=== PATIENT | male | born 1965 | race Caucasian/White ===

== ENCOUNTER 2017-03-27 13:05 | Emergency (ER) | payer MEDICAID ==
[~2017-03-27] VITALS: Ht 182.9 cm; Wt 107.5 kg
[~2017-03-27 13:05] MED LIST: AMIT25TA PO; BACL-19 PO; DISU250T15 PO; FOLI-17 PO; GABA300C10 PO; IBUP800T PO; LITH300T3 PO; LORA-446 PO; MELO-184 PO; MULT-750 PO; PROP20TA PO; QUET200T PO; THIA100T6 PO
[2017-03-27] MEDS ORDERED: KETOROLAC 30 MG/1 ML IVPush ONE (14:00)
[2017-03-27] MEDS ORDERED: SODIUM CHLORIDE FLUSH 10ML SYR IVF ONE (14:00)
[2017-03-27] MEDS ORDERED: ASPIRIN 81 MG TABLET CHEW PO ONE (14:00)
[2017-03-27 14:32] LABS: BLOOD UREA NITROGEN 10 mg/dL (7-18)
[2017-03-27 14:38] LABS: IS PT STATUS REG ER OR PRE ER? YES
[2017-03-27 16:32] VITALS: BP 149/90
[2017-03-27] MEDS ORDERED: KETOROLAC 30 MG/1 ML ONE (16:44)
[2017-03-27] MEDS ORDERED: KETOROLAC 30 MG/1 ML IM ONE (17:00)
== END 2017-03-27 17:32 | disposition home or self-care (01) ==
LOC: ED 17:05
DX: M25.511 Pain in right shoulder (principal); M79.621 Pain in right upper arm; M54.9 Dorsalgia, unspecified; G89.29 Other chronic pain; I10 Essential (primary) hypertension
CPT/HCPCS: 36415; 71010; 73030; 80048; 82040; 83880; 84484; 85025; 93005; 96372; 99285; J1885

== ENCOUNTER 2017-03-31 07:22 | Emergency (ER) | payer MEDICAID ==
[~2017-03-31] VITALS: Ht 182.9 cm; Wt 106.2 kg
[2017-03-31] MEDS ORDERED: HYDROcodone/APAP 5/325 TABLET PO ONE (08:30)
[2017-03-31] MEDS ORDERED: HYDROcodone/APAP 5/325 TABLET ONE (08:37)
[2017-03-31 08:52] VITALS: BP 131/79
== END 2017-03-31 08:58 | disposition home or self-care (01) ==
LOC: ED 08:22
DX: M79.622 Pain in left upper arm (principal); M54.9 Dorsalgia, unspecified; G89.29 Other chronic pain; I10 Essential (primary) hypertension
CPT/HCPCS: 99282

== ENCOUNTER 2017-04-17 19:48 | Emergency (ER) | payer MEDICAID ==
[~2017-04-17] VITALS: Ht 177.8 cm; Wt 97.0 kg
[2017-04-17 19:57] VITALS: BP 165/97
== END 2017-04-17 23:05 | disposition home or self-care (01) ==
LOC: ED 20:48
DX: F31.9 Bipolar disorder, unspecified (principal); F10.229 Alcohol dependence with intoxication, unspecified; I10 Essential (primary) hypertension
CPT/HCPCS: 99283

== ENCOUNTER 2017-05-19 09:04 | Emergency (ER) | payer MEDICAID ==
[~2017-05-19] VITALS: Ht 182.9 cm; Wt 98.0 kg
[2017-05-19] MEDS ORDERED: HYDROcodone/APAP 5/325 TABLET ONE (09:54)
[2017-05-19] MEDS ORDERED: HYDROcodone/APAP 5/325 TABLET PO PRN (10:00)
[2017-05-19 10:29] LABS: ASPARTATE AMINO TRANSFERASE 29 U/L (15-37); BLOOD UREA NITROGEN 11 mg/dL (7-18)
[2017-05-19 12:36] VITALS: BP 113/65
== END 2017-05-19 12:47 | disposition home or self-care (01) ==
LOC: ED 10:03
DX: R42 Dizziness and giddiness (principal); I10 Essential (primary) hypertension
CPT/HCPCS: 29515; 36415; 80053; 85025; 93005

== ENCOUNTER 2018-03-27 09:07 | Inpatient (IN) | payer MEDICAID ==
[~2018-03-27] VITALS: Ht 182.9 cm; Wt 105.8 kg
[~2018-03-27 09:07] MED LIST changes: +IBUP-1223 PO; -IBUP800T PO; -MELO-184 PO; +MELO15TA24 PO
[2018-03-27] MEDS ORDERED: GABA100C PO (09:21)
[2018-03-27] MEDS ORDERED: SODIUM CHLORIDE 0.9% 1,000 ML IV ONE (09:26)
[2018-03-27] MEDS ORDERED: SODIUM CHLORIDE 0.9% 1,000ML IVBOLUS ONE (09:30)
[2018-03-27 10:14] LABS: BASOPHILS % (AUTO) 0 % (0-1); EOSINOPHILS # (AUTO) 0.08 x10^3/uL (0-0.4); EOSINOPHILS % (AUTO) 1 % (1-7); LYMPHOCYTES # (AUTO) 0.52 x10^3/uL (1-3.4); LYMPHOCYTES % (AUTO) 9 % (22-44); MD NO; MEAN CORPUSCULAR HEMOGLOBIN 31.2 pg (27.5-34.5); MEAN CORPUSCULAR VOLUME 91.6 fL (81-97); MEAN PLATELET VOLUME 8.1 fL (7.4-10.4); MONOCYTES # (AUTO) 0.27 x10^3/uL (0.2-0.8); MONOCYTES % (AUTO) 5 % (2-9); NEUTROPHILS # (AUTO) 5.02 x10^3/uL (1.8-6.8); NEUTROPHILS % (AUTO) 85 % (42-75); PLATELET COUNT 168 x10^3/uL (130-400); RED BLOOD COUNT 4.23 x10^6/uL (4.38-5.82); RED CELL DISTRIBUTION WIDTH 13.2 % (9.4-14.8)
[2018-03-27 10:26] LABS: ALANINE AMINOTRANSFERASE 282 U/L (12-78); ALBUMIN 3.2 g/dL (3.4-5.0); ANION GAP 12 mmol/L (5-15); CALCIUM 7.9 mg/dL (8.5-10.1); CHLORIDE 98 mmol/L (98-107); CREATININE 0.84 mg/dL (0.7-1.3)
[2018-03-27 10:31] LABS: SALICYLATE LEVEL < 1.7 mg/dL (2.8-20.0)
[2018-03-27 10:37] LABS: ALKALINE PHOSPHATASE 112 U/L (45-117); THYROID STIMULATING HORMONE 0.523 mIU/L (0.358-3.740); TOTAL PROTEIN 6.7 g/dL (6.4-8.2)
[2018-03-27 10:39] LABS: ACETAMINOPHEN < 2 mcg/mL (10-30)
[2018-03-27] MEDS ORDERED: POTASSIUM CHLORIDE 20 MEQ, MVI ADULT 10 ML, FOLIC ACID 1 MG, MAGNESIUM SULFATE 2 GM in ... IV SCH (12:50)
[2018-03-27] MEDS ORDERED: LORazepam 1MG TABLET PO PRN ×4 (13:00)
[2018-03-27] MEDS ORDERED: PROMETHAZINE 25MG TABLET PO PRN (13:00)
[2018-03-27] MEDS ORDERED: DOCUSATE 100 MG CAPSULE PO PRN (13:00)
[2018-03-27] MEDS ORDERED: LORazepam 0.5MG TABLET PO PRN (13:00)
[2018-03-27] MEDS ORDERED: BISACODYL 10 MG SUPP PR PRN (13:00)
[2018-03-27] MEDS ORDERED: LORazepam 2 MG/ML, 1ML IV PRN ×2 (13:00)
[2018-03-27] MEDS ORDERED: LABETALOL 5MG/ML, 20ML IV PRN (13:00)
[2018-03-27] MEDS ORDERED: ONDANSETRON 2MG/ML, 2ML IV PRN (13:00)
[2018-03-27 13:24] LABS: BILIRUBIN, DIRECT 0.3 mg/dL (0.1-0.2)
[2018-03-27] MEDS ORDERED: LORazepam 2 MG/ML, 1ML ONE (13:58)
[2018-03-27] MEDS: LORazepam 2 MG/ML, 1ML IV PRN ×4 (14:03→22:44)
[2018-03-27 14:58] VITALS: BP 128/83
[2018-03-27] MEDS: GABAPENTIN 100 MG CAPSULE PO SCH ×2 (15:46→21:10)
[2018-03-27] MEDS: HEPARIN 5,000 UNITS/ML, 1ML SQ SCH ×2 (15:46→21:00)
[2018-03-27 17:40] VITALS: BP 118/75
[2018-03-27 19:25] LABS: MICROSCOPIC NOT IND
[2018-03-27 19:28] LABS: CULTURE INDICATED? NO
[2018-03-27 20:14] VITALS: BP_SYST 112; BP_SYST 127; BP_DIAS 64; BP_DIAS 80
[2018-03-27] MEDS: PROPRANOLOL 20 MG TABLET PO SCH (21:10)
[2018-03-27 21:34] LABS: AMPHETAMINE SCREEN, URINE Negative (Negative); BARBITURATE SCREEN, URINE Negative (Negative); BENZODIAZEPINE SCREEN, URINE Negative (Negative); CANNABINOID SCREEN, URINE Negative (Negative); COCAINE SCREEN, URINE Negative (Negative); METHADONE SCREEN, URINE Negative (Negative); OPIATE SCREEN, URINE Negative (Negative)
[2018-03-28] MEDS: LORazepam 2 MG/ML, 1ML IV PRN ×7 (00:05→23:45)
[2018-03-28 02:07] VITALS: BP 122/81
[2018-03-28] MEDS: HEPARIN 5,000 UNITS/ML, 1ML SQ SCH ×3 (05:00→20:13)
[2018-03-28 05:28] LABS: BASOPHILS % (AUTO) 0 % (0-1); MD NO; MEAN CORPUSCULAR HEMOGLOBIN 31.7 pg (27.5-34.5); MEAN CORPUSCULAR HGB CONC 34.3 g/dL (33.2-36.2); MEAN PLATELET VOLUME 8.5 fL (7.4-10.4)
[2018-03-28 05:30] LABS: INTERNATIONAL NORMALIZED RATIO 0.96 (0.93-1.1)
[2018-03-28 05:36] LABS: BASOPHILS # (AUTO) 0.01 x10^3/uL (0-0.1); EOSINOPHILS # (AUTO) 0.45 x10^3/uL (0-0.4); EOSINOPHILS % (AUTO) 9 % (1-7); LYMPHOCYTES # (AUTO) 0.96 x10^3/uL (1-3.4); LYMPHOCYTES % (AUTO) 20 % (22-44); MEAN CORPUSCULAR VOLUME 92.4 fL (81-97); MONOCYTES # (AUTO) 0.29 x10^3/uL (0.2-0.8); MONOCYTES % (AUTO) 6 % (2-9); NEUTROPHILS # (AUTO) 3.18 x10^3/uL (1.8-6.8); NEUTROPHILS % (AUTO) 65 % (42-75); PLATELET COUNT 127 x10^3/uL (130-400); RED BLOOD COUNT 4.34 x10^6/uL (4.38-5.82); RED CELL DISTRIBUTION WIDTH 13.1 % (9.4-14.8)
[2018-03-28 05:45] LABS: CHLORIDE 107 mmol/L (98-107)
[2018-03-28 06:09] LABS: ALANINE AMINOTRANSFERASE 209 U/L (12-78); ALKALINE PHOSPHATASE 97 U/L (45-117); ANION GAP 8 mmol/L (5-15); BILIRUBIN,TOTAL 0.9 mg/dL (0.2-1.0); CALCIUM 8.2 mg/dL (8.5-10.1); CREATININE 0.73 mg/dL (0.7-1.3); TOTAL PROTEIN 6.5 g/dL (6.4-8.2)
[2018-03-28 08:37] VITALS: BP 120/82
[2018-03-28] MEDS: PROPRANOLOL 20 MG TABLET PO SCH ×2 (09:32→20:13)
[2018-03-28] MEDS: MULTIVITAMINS/MINERALS TABLET PO SCH (09:33)
[2018-03-28] MEDS: GABAPENTIN 100 MG CAPSULE PO SCH ×3 (09:33→20:13)
[2018-03-28 12:29] LABS: % IRON SATURATION 16 % (20-55); IRON LEVEL 39 mcg/dL (65-175); TOTAL IRON BINDING CAPACITY 239 mcg/dL (250-450)
[2018-03-28] MEDS ORDERED: GADOBUTROL 10 MMOL/10 ML PFS ONE (13:15)
[2018-03-28 13:50] VITALS: BP 110/77
[2018-03-28] MEDS: POTASSIUM CHLORIDE 20 MEQ TAB.ER.PRT PO SCH (15:44)
[2018-03-28] MEDS ORDERED: OMNIPAQUE 350 MG/ML, 100ML BOTTLE ONE (20:15)
[2018-03-28 20:37] VITALS: BP 110/73
[2018-03-29 02:06] VITALS: BP 119/80
[2018-03-29] MEDS: HEPARIN 5,000 UNITS/ML, 1ML SQ SCH ×3 (04:38→21:01)
[2018-03-29] MEDS: LORazepam 2 MG/ML, 1ML IV PRN ×4 (05:08→19:39)
[2018-03-29 07:17] VITALS: BP 114/80
[2018-03-29] MEDS: POTASSIUM CHLORIDE 20 MEQ TAB.ER.PRT PO SCH ×3 (08:00→15:31)
[2018-03-29 08:19] LABS: BASOPHILS # (AUTO) 0.01 x10^3/uL (0-0.1); BASOPHILS % (AUTO) 0 % (0-1); EOSINOPHILS # (AUTO) 0.56 x10^3/uL (0-0.4); EOSINOPHILS % (AUTO) 10 % (1-7); LYMPHOCYTES # (AUTO) 0.98 x10^3/uL (1-3.4); LYMPHOCYTES % (AUTO) 17 % (22-44); MD NO; MEAN CORPUSCULAR HEMOGLOBIN 31.7 pg (27.5-34.5); MEAN CORPUSCULAR HGB CONC 34.5 g/dL (33.2-36.2); MEAN CORPUSCULAR VOLUME 92.1 fL (81-97); MEAN PLATELET VOLUME 8.8 fL (7.4-10.4); MONOCYTES # (AUTO) 0.55 x10^3/uL (0.2-0.8); MONOCYTES % (AUTO) 10 % (2-9); NEUTROPHILS # (AUTO) 3.62 x10^3/uL (1.8-6.8); NEUTROPHILS % (AUTO) 63 % (42-75); PLATELET COUNT 139 x10^3/uL (130-400); RED BLOOD COUNT 4.36 x10^6/uL (4.38-5.82)
[2018-03-29 08:26] LABS: ALANINE AMINOTRANSFERASE 152 U/L (12-78); ALBUMIN 2.7 g/dL (3.4-5.0); ANION GAP 10 mmol/L (5-15); CALCIUM 7.8 mg/dL (8.5-10.1); CHLORIDE 103 mmol/L (98-107); CREATININE 0.78 mg/dL (0.7-1.3)
[2018-03-29 08:28] LABS: ALKALINE PHOSPHATASE 98 U/L (45-117); BILIRUBIN,TOTAL 0.7 mg/dL (0.2-1.0); TOTAL PROTEIN 6.3 g/dL (6.4-8.2)
[2018-03-29] MEDS: PROPRANOLOL 20 MG TABLET PO SCH ×3 (08:45→21:01)
[2018-03-29] MEDS: MULTIVITAMINS/MINERALS TABLET PO SCH ×2 (08:45→08:50)
[2018-03-29] MEDS: IRON SUCROSE COMPLEX 100MG/5ML IV SCH (08:45)
[2018-03-29] MEDS: GABAPENTIN 100 MG CAPSULE PO SCH ×4 (08:46→21:00)
[2018-03-29 11:20] VITALS: BP 115/81
[2018-03-29] MEDS ORDERED: MORPHINE SULFATE 4 MG/ML, 1ML IVPush ONE (11:30)
[2018-03-29 13:16] VITALS: BP 131/84
[2018-03-29] MEDS: QUETIAPINE 100MG TABLET PO SCH ×2 (14:19→21:00)
[2018-03-29] MEDS: SODIUM CHLORIDE 0.9% 1,000 ML IV SCH ×2 (15:30→22:10)
[2018-03-29] MEDS ORDERED: BUPR100T11 PO (16:21)
[2018-03-29] MEDS ORDERED: [UNRECOGNIZED DRUG - CODE] PO (16:23)
[2018-03-29] MEDS ORDERED: LORA1TAB PO (16:24)
[2018-03-29] MEDS ORDERED: HYDR50TA13 PO (16:26)
[2018-03-29] MEDS ORDERED: CYCL-259 PO (16:28)
[2018-03-29] MEDS ORDERED: IBUP-1223 PO (16:29)
[2018-03-29] MEDS ORDERED: FLUO20CA8 PO (16:32)
[2018-03-29 18:41] VITALS: BP 137/100
[2018-03-30] MEDS: LORazepam 2 MG/ML, 1ML IV PRN (00:58)
[2018-03-30 02:00] VITALS: BP 124/81
[2018-03-30] MEDS: HEPARIN 5,000 UNITS/ML, 1ML SQ SCH ×3 (04:15→21:00)
[2018-03-30] MEDS: SODIUM CHLORIDE 0.9% 1,000 ML IV SCH ×3 (05:20→22:36)
[2018-03-30 05:40] LABS: BASOPHILS # (AUTO) 0.02 x10^3/uL (0-0.1); BASOPHILS % (AUTO) 0 % (0-1); EOSINOPHILS # (AUTO) 0.43 x10^3/uL (0-0.4); EOSINOPHILS % (AUTO) 8 % (1-7); LYMPHOCYTES # (AUTO) 1.14 x10^3/uL (1-3.4); LYMPHOCYTES % (AUTO) 21 % (22-44); MD NO; MEAN CORPUSCULAR HEMOGLOBIN 31.5 pg (27.5-34.5); MEAN CORPUSCULAR HGB CONC 34.2 g/dL (33.2-36.2); MEAN CORPUSCULAR VOLUME 92.1 fL (81-97); MEAN PLATELET VOLUME 8.1 fL (7.4-10.4); MONOCYTES # (AUTO) 0.62 x10^3/uL (0.2-0.8); MONOCYTES % (AUTO) 11 % (2-9); NEUTROPHILS # (AUTO) 3.21 x10^3/uL (1.8-6.8); NEUTROPHILS % (AUTO) 59 % (42-75); PLATELET COUNT 160 x10^3/uL (130-400); RED BLOOD COUNT 4.14 x10^6/uL (4.38-5.82); RED CELL DISTRIBUTION WIDTH 13.1 % (9.4-14.8)
[2018-03-30 05:54] LABS: CHLORIDE 106 mmol/L (98-107)
[2018-03-30 05:59] LABS: ALANINE AMINOTRANSFERASE 124 U/L (12-78); ALBUMIN 2.8 g/dL (3.4-5.0); ALKALINE PHOSPHATASE 88 U/L (45-117); ANION GAP 10 mmol/L (5-15); BILIRUBIN,TOTAL 0.7 mg/dL (0.2-1.0); CREATININE 0.75 mg/dL (0.7-1.3); TOTAL PROTEIN 6.5 g/dL (6.4-8.2)
[2018-03-30 08:51] VITALS: BP 150/92
[2018-03-30] MEDS: QUETIAPINE 100MG TABLET PO SCH ×3 (08:59→21:19)
[2018-03-30] MEDS: MULTIVITAMINS/MINERALS TABLET PO SCH (08:59)
[2018-03-30] MEDS: PROPRANOLOL 20 MG TABLET PO SCH ×2 (09:00→21:19)
[2018-03-30] MEDS: IRON SUCROSE COMPLEX 100MG/5ML IV SCH (09:00)
[2018-03-30] MEDS ORDERED: POTASSIUM CHLORIDE 40 MEQ in SODIUM CHLORIDE 0.9% 500 ML IV ONE (09:00)
[2018-03-30] MEDS: GABAPENTIN 100 MG CAPSULE PO SCH ×3 (09:00→21:19)
[2018-03-30] MEDS ORDERED: FENTANYL PF 100 MCG/2ML ONE ×2 (09:57→11:08)
[2018-03-30] MEDS ORDERED: SUCCINYLCHOLINE 20 MG/ML, 10ML ONE (09:58)
[2018-03-30] MEDS ORDERED: DEXAMETHASONE 4 MG/ML, 1ML ONE (09:58)
[2018-03-30] MEDS ORDERED: PROPOFOL 10 MG/ML, 20ML ONE (09:58)
[2018-03-30] MEDS ORDERED: MEPERIDINE/PF 25MG/0.5ML IVPush PRN ×2 (10:30→12:00)
[2018-03-30] MEDS ORDERED: MIDAZOLAM 1 MG/ML, 2ML IV PRN ×2 (10:30→12:00)
[2018-03-30] MEDS ORDERED: MORPHINE SULFATE 4 MG/ML, 1ML IVPush PRN ×2 (10:30→12:00)
[2018-03-30] MEDS ORDERED: ALBUTEROL SULFATE 2.5 MG/3 ML NPPB PRN ×2 (10:30→12:00)
[2018-03-30] MEDS ORDERED: ONDANSETRON 0.8 MG/ML ORAL SOL PO PRN ×2 (10:30→12:00)
[2018-03-30] MEDS ORDERED: LABETALOL 5MG/ML, 20ML IV PRN ×2 (10:30→12:00)
[2018-03-30] MEDS ORDERED: PROMETHAZINE 25 MG/ML, 1ML IV PRN ×2 (10:30→12:00)
[2018-03-30] MEDS ORDERED: hydrALAzine 20 MG/ML, 1ML IV PRN ×2 (10:30→12:00)
[2018-03-30] MEDS ORDERED: PROMETHAZINE 12.5 MG SUPP PR PRN ×2 (10:30→12:00)
[2018-03-30] MEDS ORDERED: OXYcodone 5 MG/5 ML ORAL.SOL UDC PO PRN ×2 (10:30→12:00)
[2018-03-30] MEDS ORDERED: OMNIPAQUE 350 MG/ML, 50 ML BOTTLE ONE (10:58)
[2018-03-30] MEDS: FENTANYL PF 100 MCG/2ML IV PRN ×3 (11:00→11:20)
[2018-03-30] MEDS ORDERED: OXYcodone 5 MG/5 ML ORAL.SOL UDC ONE (11:08)
[2018-03-30 11:59] VITALS: BP 127/88
[2018-03-30] MEDS ORDERED: FENTANYL PF 100 MCG/2ML IV PRN (12:00)
[2018-03-30] MEDS ORDERED: SCOPOLAMINE PATCH, 1.5MG PATCH.TD72 TD PRN (12:00)
[2018-03-30 19:04] VITALS: BP 169/92
[2018-03-31 02:04] VITALS: BP 148/84
[2018-03-31] MEDS: HEPARIN 5,000 UNITS/ML, 1ML SQ SCH (04:13)
[2018-03-31] MEDS: SODIUM CHLORIDE 0.9% 1,000 ML IV SCH (05:40)
[2018-03-31 06:05] LABS: BASOPHILS # (AUTO) 0.02 x10^3/uL (0-0.1); BASOPHILS % (AUTO) 0 % (0-1); EOSINOPHILS # (AUTO) 0.03 x10^3/uL (0-0.4); EOSINOPHILS % (AUTO) 0 % (1-7); LYMPHOCYTES # (AUTO) 1.13 x10^3/uL (1-3.4); LYMPHOCYTES % (AUTO) 14 % (22-44); MD NO; MEAN CORPUSCULAR HEMOGLOBIN 32.1 pg (27.5-34.5); MEAN CORPUSCULAR HGB CONC 34.5 g/dL (33.2-36.2); MEAN CORPUSCULAR VOLUME 93.2 fL (81-97); MEAN PLATELET VOLUME 7.4 fL (7.4-10.4); MONOCYTES # (AUTO) 0.68 x10^3/uL (0.2-0.8); MONOCYTES % (AUTO) 8 % (2-9); NEUTROPHILS # (AUTO) 6.52 x10^3/uL (1.8-6.8); NEUTROPHILS % (AUTO) 78 % (42-75); PLATELET COUNT 211 x10^3/uL (130-400); RED BLOOD COUNT 4.37 x10^6/uL (4.38-5.82); RED CELL DISTRIBUTION WIDTH 13.7 % (9.4-14.8)
[2018-03-31 06:17] LABS: ALBUMIN 2.9 g/dL (3.4-5.0); ANION GAP 10 mmol/L (5-15); CALCIUM 8.3 mg/dL (8.5-10.1); CHLORIDE 107 mmol/L (98-107)
[2018-03-31 06:22] LABS: ALANINE AMINOTRANSFERASE 161 U/L (12-78); ALKALINE PHOSPHATASE 178 U/L (45-117); BILIRUBIN,TOTAL 0.8 mg/dL (0.2-1.0); CREATININE 0.74 mg/dL (0.7-1.3); TOTAL PROTEIN 6.8 g/dL (6.4-8.2)
[2018-03-31] MEDS ORDERED: POTASSIUM CHLORIDE 20 MEQ TAB.ER.PRT PO SCH (08:00)
[2018-03-31] MEDS: MULTIVITAMINS/MINERALS TABLET PO SCH (08:33)
[2018-03-31] MEDS: GABAPENTIN 100 MG CAPSULE PO SCH (08:34)
[2018-03-31] MEDS: QUETIAPINE 100MG TABLET PO SCH (08:34)
[2018-03-31] MEDS: IRON SUCROSE COMPLEX 100MG/5ML IV SCH (08:34)
[2018-03-31 08:38] VITALS: BP 151/74
[2018-03-31] MEDS: PROPRANOLOL 20 MG TABLET PO SCH (08:39)
[2018-03-31 10:28] VITALS: BP 153/90
== END 2018-03-31 12:38 | disposition left against medical advice (07) | DRG 432 ==
LOC: ED 10:07 → EDIP 12:50 → 4WST 14:25
PROVIDERS: ADMIT Hospitalist; ATTEND Hospitalist
PROC: 0WJG3ZZ Inspection of Peritoneal Cavity, Percutaneous Approach (ICD-10-PCS; principal; 2018-03-27)
PROC: 0FC98ZZ Extirpation of Matter from Common Bile Duct, Via Natural or Artificial Opening Endoscopic (ICD-10-PCS; 2018-03-30)
DX: K70.40 Alcoholic hepatic failure without coma (principal); G93.41 Metabolic encephalopathy; E44.0 Moderate protein-calorie malnutrition; K85.90 Acute pancreatitis without necrosis or infection, unspecified; E87.1 Hypo-osmolality and hyponatremia; F10.239 Alcohol dependence with withdrawal, unspecified; K80.50 Calculus of bile duct without cholangitis or cholecystitis without obstruction; D50.9 Iron deficiency anemia, unspecified; E87.6 Hypokalemia; F19.94 Other psychoactive substance use, unspecified with psychoactive substance-induced mood disorder; F31.9 Bipolar disorder, unspecified; I10 Essential (primary) hypertension; K74.60 Unspecified cirrhosis of liver; K82.8 Other specified diseases of gallbladder; R62.7 Adult failure to thrive; Z53.21 Procedure and treatment not carried out due to patient leaving prior to being seen by health care provider; S91.002A Unspecified open wound, left ankle, initial encounter; Z68.31 Body mass index [BMI] 31.0-31.9, adult
CPT/HCPCS: 36415; 49083; 70450; 71045; 74177; 74181; 74328; 80053; 80307; 80329; 81003; 82140; 82248; 83540; 83550; 83690; 83735; 84100; 84443; 85025; 85610; 93005; A9585; J1100; J1644; J1756; J2704; J3010; J3475; J3480; Q9967; G0480; J0330; J2060; J7030; J7040

== ENCOUNTER 2018-09-06 08:04 | Emergency (ER) | payer MEDICAID ==
[~2018-09-06] VITALS: Ht 182.9 cm; Wt 100.0 kg
[~2018-09-06 08:04] MED LIST changes: +BUPR100T11 PO; +CYCL-259 PO; +FLUO20CA8 PO; +GABA100C PO; +HYDR50TA13 PO; +LORA1TAB PO; +QUET200T79 PO; -THIA100T6 PO; +THIA100T67 PO
[2018-09-06 08:44] LABS: BASOPHILS # (AUTO) 0.02 x10^3/uL (0-0.1); BASOPHILS % (AUTO) 0 % (0-1); EOSINOPHILS # (AUTO) 0.31 x10^3/uL (0-0.4); EOSINOPHILS % (AUTO) 4 % (1-7); LYMPHOCYTES # (AUTO) 1.07 x10^3/uL (1-3.4); LYMPHOCYTES % (AUTO) 12 % (22-44); MD NO; MEAN CORPUSCULAR HEMOGLOBIN 31.6 pg (27.5-34.5); MEAN CORPUSCULAR HGB CONC 33.7 g/dL (33.2-36.2); MEAN CORPUSCULAR VOLUME 93.8 fL (81-97); MEAN PLATELET VOLUME 8.1 fL (7.4-10.4); MONOCYTES # (AUTO) 0.38 x10^3/uL (0.2-0.8); MONOCYTES % (AUTO) 4 % (2-9); NEUTROPHILS # (AUTO) 6.81 x10^3/uL (1.8-6.8); NEUTROPHILS % (AUTO) 79 % (42-75); PLATELET COUNT 294 x10^3/uL (130-400); RED BLOOD COUNT 4.67 x10^6/uL (4.38-5.82); RED CELL DISTRIBUTION WIDTH 13.6 % (9.4-14.8)
[2018-09-06 08:48] LABS: INTERNATIONAL NORMALIZED RATIO 0.95 (0.93-1.1); PROTHROMBIN TIME 9.8 Seconds (9.6-11.5)
[2018-09-06] MEDS ORDERED: OXYcodone/APAP 5/325MG TABLET PO ONE (09:00)
[2018-09-06] MEDS ORDERED: OXYcodone/APAP 5/325MG TABLET ONE (09:07)
[2018-09-06 09:22] LABS: ALANINE AMINOTRANSFERASE 21 U/L (12-78); ALBUMIN 3.4 g/dL (3.4-5.0); ANION GAP 4 mmol/L (5-15); CALCIUM 8.8 mg/dL (8.5-10.1); CHLORIDE 106 mmol/L (98-107); CREATININE 0.84 mg/dL (0.7-1.3)
[2018-09-06 09:24] LABS: ALKALINE PHOSPHATASE 63 U/L (45-117); BILIRUBIN,TOTAL 0.6 mg/dL (0.2-1.0); TOTAL PROTEIN 7.6 g/dL (6.4-8.2)
[2018-09-06 10:05] VITALS: BP 117/75
== END 2018-09-06 10:18 | disposition home or self-care (01) ==
LOC: ED 08:15
DX: S42.032A Displaced fracture of lateral end of left clavicle, initial encounter for closed fracture (principal); S20.212A Contusion of left front wall of thorax, initial encounter; I10 Essential (primary) hypertension; F31.9 Bipolar disorder, unspecified; X50.1XXA Overexertion from prolonged static or awkward postures, initial encounter; Y93.89 Activity, other specified; Y92.009 Unspecified place in unspecified non-institutional (private) residence as the place of occurrence of the external cause; Y99.8 Other external cause status
CPT/HCPCS: 36415; 80053; 85025; 85610; 85730; 99285

== ENCOUNTER 2018-09-27 02:58 | Emergency (ER) | payer MEDICAID ==
[~2018-09-27] VITALS: Ht 185.4 cm; Wt 100.0 kg
[2018-09-27 02:59] VITALS: BP 119/66
[2018-09-27] MEDS ORDERED: HYDROcodone/APAP 5/325 TABLET ONE (03:23)
[2018-09-27] MEDS ORDERED: HYDROcodone/APAP 5/325 TABLET PO ONE (03:30)
== END 2018-09-27 04:28 | disposition home or self-care (01) ==
LOC: ED 03:06
DX: M79.672 Pain in left foot (principal); M25.572 Pain in left ankle and joints of left foot; I10 Essential (primary) hypertension; F31.9 Bipolar disorder, unspecified
CPT/HCPCS: 99284

== ENCOUNTER 2021-06-02 15:18 | Emergency (ER) | payer SELFPAY ==
[~2021-06-02] VITALS: Ht 175.3 cm; Wt 100.0 kg
[~2021-06-02 15:18] MED LIST changes: -CYCL-259 PO; +CYCL10TA2 PO; +FLUO20CA23 PO; -FLUO20CA8 PO; -FOLI-17 PO; +FOLI1TAB32 PO; -HYDR50TA13 PO; +HYDR50TA99 PO; +MULT-482 PO; -MULT-750 PO
--- NOTE | 2021-06-02 15:33 | NUR ---
PT HERE VIA EMS. ONE EMPTY VODKA PINT, AND ONE FULL AT HIS SIDE. HE IS OBVIOUSLY INTOXICATED, AND LIKELY HAS A MENTAL HEALTH DIAGNOSIS. HE IS ASKING FOR "MAMA" I DO NOT HAVE ANY POTENTIAL CONTACT INFO FOR FAMILY.
--- NOTE | 2021-06-02 15:38 | NUR ---
[address] W NS INFUSING UPON ARRIVAL.
--- NOTE | 2021-06-02 15:44 | NUR ---
PT SOBBING, AND FEARFUL FOR HIS OWN WRONG-DOING. VERBAL REASSURANCE HAS BEEN PROVIDED
[2021-06-02] MEDS ORDERED: ONDANSETRON 2MG/ML, 2ML ONE (15:47)
--- NOTE | 2021-06-02 15:54 | NUR ---
AERIAL GUNNER: SITTER REQUESTED PER PRIMARY RN NEED.
--- NOTE | 2021-06-02 15:56 | NUR ---
PT IS EXTREMELY RESTLESS. HE IS ATTEMPTING TO STAND WHILE GROSSLY INTOXICATED. I WILL NOT LEAVE THE BEDSIDE UNTIL SAFE.
[2021-06-02] MEDS ORDERED: SODIUM CHLORIDE 0.9% 1,000 ML IV ONE (16:00)
[2021-06-02] MEDS ORDERED: ONDANSETRON 2MG/ML, 2ML IVPush ONE (16:00)
--- NOTE | 2021-06-02 16:22 | NUR ---
PHLEBOTOMY IS AT THE BEDSIDE FOR BLOOD SAMPLING
[2021-06-02 16:54] LABS: ALANINE AMINOTRANSFERASE 153 U/L (12-78); ALBUMIN 3.8 g/dL (3.4-5.0); ANION GAP 17 mmol/L (5-15); CALCIUM 7.6 mg/dL (8.5-10.1); CHLORIDE 102 mmol/L (98-107); CREATININE 0.99 mg/dL (0.7-1.3)
[2021-06-02 16:59] LABS: ALKALINE PHOSPHATASE 91 U/L (45-117); BILIRUBIN,TOTAL 0.9 mg/dL (0.2-1.0); TOTAL PROTEIN 7.4 g/dL (6.4-8.2)
[2021-06-02] MEDS ORDERED: LORazepam 2 MG/ML, 1ML ONE (17:05)
--- NOTE | 2021-06-02 17:08 | NUR ---
PT REQUESTING LORAZEPAM. ERP IS AGREEABLE TO AID IN RESTLESSNESS
[2021-06-02 17:09] LABS: BASOPHILS % (AUTO) 0 % (0-1); EOSINOPHILS % (AUTO) 0 % (1-7); LYMPHOCYTES % (AUTO) 9 % (22-44); MEAN CORPUSCULAR HEMOGLOBIN 31.2 pg (27.5-34.5); MEAN PLATELET VOLUME 8.7 fL (7.4-10.4); MONOCYTES % (AUTO) 6 % (2-9); NEUTROPHILS % (AUTO) 84 % (42-75); PLATELET COUNT 290 x10^3/uL (130-400); RED BLOOD COUNT 4.98 x10^6/uL (4.38-5.82)
[2021-06-02] MEDS ORDERED: LORazepam 2 MG/ML, 1ML IVPush ONE (17:30)
--- NOTE | 2021-06-02 18:05 | NUR ---
UNABLE TO LOCATE FAMILY BY PHONE. WE WILL ALLOW THIS PT TO CONTINUE TO METABOLIZE ETOH UNTIL HE IS STABLE ON HIS FEET, AND MAKING REASONABLE DECISIONS.
--- NOTE | 2021-06-02 18:43 | NUR ---
CHALO (RN) IS ASSUMING CARE OF THIS PT AT THIS TIME. SBAR WAS EXCHANGED AT THE BEDSIDE.
--- NOTE | 2021-06-02 20:08 | NUR ---
PT AROUSABLE TO VERBAL STIMULI
[2021-06-02 20:25] VITALS: BP 107/57
--- NOTE | 2021-06-02 20:52 | NUR ---
PT AMBULATED OUT WITH STEADY GAIT. GIVEN TAXI VOUCHER FOR SAFE TRANSPORTATION TO HIS HOUSE.
== END 2021-06-02 20:54 | disposition home or self-care (01) ==
LOC: MERGE 15:18 → ED 20:30
DX: F10.221 Alcohol dependence with intoxication delirium (principal); I10 Essential (primary) hypertension; Y90.0 Blood alcohol level of less than 20 mg/100 ml
CPT/HCPCS: 36415; 80053; 80320; 85025; 96361; 96374; 96375; 99284; J2060; J2405; J7030; G0480

== ENCOUNTER 2021-06-03 09:09 | Emergency (ER) | payer SELFPAY ==
[~2021-06-03] VITALS: Ht 180.3 cm; Wt 94.0 kg
--- NOTE | 2021-06-03 09:46 | NUR ---
PT BIBA. PER EMS PT IS INTOXICATED AND FOUND LAYING ON THE SIDEWALK. PT IS UNCOOPERATIVE AT THIS TIME AND UNWILLING TO ANSWER QUESTIONS. PT IS A&OX1 AT THIS TIME. PT IS TRYING TO CLIMB OUT OF BED, SITTER IN DIRECT LINE OF SIGHT. PT RESTING IN RNEY, MONITORING IN PLACE, AWAITING EDMD GEORGINA PAT.
--- NOTE | 2021-06-03 09:54 | NUR ---
Gabi Pruitt mother would like to come bean picker her son once ready for dc [phone]
[2021-06-03] MEDS ORDERED: LORazepam 2 MG/ML, 1ML IM ONE (11:30)
[2021-06-03] MEDS ORDERED: LORazepam 2 MG/ML, 1ML ONE ×2 (11:30→11:35)
--- NOTE | 2021-06-03 11:39 | NUR ---
PT AGITATED AT THIS TIME, RIPPING ALL MONITORING OFF, AND STATED "I AM LEAVING". PT UNABLE TO AMBULATE STEADILY, EDUCATED ON IMPORTANCE OF STAYING, EDMD AND SECURITY AT BEDSIDE. PT REDIRECTED AND NOW RESTING IN RWOODROW, PT MEDICATED PER EMAR, SITTER WITHIN LINE OF SIGHT.
--- NOTE | 2021-06-03 13:55 | NUR ---
PT RESTING IN [facility]. PSA IN ROOM WITH PT.
--- NOTE | 2021-06-03 14:35 | NUR ---
PARENTS HERE IN ROOM WITH PT.
--- NOTE | 2021-06-03 16:33 | NUR ---
pt resting in gurney. psa in room. parents bedside
--- NOTE | 2021-06-03 16:39 | NUR ---
TOOK PT FOR ROAD TEST. PT UNSTEADY ON FEET. DIET TRAY ORDERED
--- NOTE | 2021-06-03 17:40 | NUR ---
ASSUMED CARE OF PT AT THIS TIME. FOOD TRAY PROVIDED. PARENTS AT BS. SITTER IN VIEW FOR SAFETY
--- NOTE | 2021-06-03 18:23 | NUR ---
PT SITTING ON GURNATACHA, PARENTS AT BS. AMOS. SITTER IN VIEW FOR SAFETY. COMFORT MEASURES PROVIDED
--- NOTE | 2021-06-03 18:53 | NUR ---
RECEIVED REPORT FROM DANIELA GOLDSMITH. TRANSFER OF CARE.
[2021-06-03] MEDS ORDERED: QUETIAPINE 100MG TABLET PO ONE (19:00)
[2021-06-03] MEDS ORDERED: ONDANSETRON 4 MG TABLET PO ONE (19:00)
[2021-06-03] MEDS ORDERED: ONDANSETRON ODT 4 MG ONE (19:04)
[2021-06-03] MEDS ORDERED: QUETIAPINE 100MG TABLET ONE (19:04)
[2021-06-03 19:57] VITALS: BP 129/66
--- NOTE | 2021-06-03 19:59 | NUR ---
Patient/Caregiver given discharge instructions and they have confirmed that they understand the instructions. Patient ambulatory with steady gait. NAD, all questions answered appropriately, denies additional needs at this time. No personal belongings left in room after discharge. PT GIVEN TAXI VOUCHER AND OFFERED CLEAN CLOTHES BUT REFUSED. PT A&OX4, BRETAHING EVEN AND UNLABORED, AND SPEECH WAS CLEAR BEFORE DC.
== END 2021-06-03 20:02 | disposition home or self-care (01) ==
LOC: ED 09:17
DX: F10.132 Alcohol abuse with withdrawal with perceptual disturbance (principal); G92 Toxic encephalopathy; I10 Essential (primary) hypertension; Y90.0 Blood alcohol level of less than 20 mg/100 ml
CPT/HCPCS: 70450; 96372; 99285; J2060; Q0162